=== PATIENT | female | born 1990 | race Caucasian/White ===

== ENCOUNTER 2018-12-12 17:41 | Emergency (ER) | payer OTHER ==
[2018-12-12 18:00] VITALS: BP 127/91
--- NOTE | 2018-12-12 19:08 | UC ---
Complaint Female HPI - HPI Summary HPI Summary: 28 year old female with PMH + for seizure disorder presents with vaginal itching , no discharge, rectal pain with bleeding after hard, large stools x 1 week, recently new medication which caused increased urination, thirst, stopped med ~ 1 week ago, thirst/ urination improved. - History Of Current Complaint Chief Complaint: UCGU Stated Complaint: PERSONAL ISSUE Time Seen by Provider: 12/12/18 18:23 Hx Obtained From: Patient Hx Last Menstrual Period: 3 wks ago ?: No - not sexually active Onset/Duration: Sudden Onset, Lasting Weeks Timing: Constant Severity Initially: Moderate Severity Currently: Moderate Pain Intensity: 4 Pain Scale Used: 0-10 Numeric Character: Burning Aggravating Factor(s): Movement, Urination Associated Signs And Symptoms: Positive: Negative, Vaginal Discharge - Allergies/Home Medications Allergies/Adverse Reactions: Allergies Allergy/AdvReac Type Severity Reaction Status Date / Time Antihistamines - Alkylamine Allergy See Comment Verified 12/12/18 18:01 Antihistamines - Ethanolamine Allergy See Comment Verified 12/12/18 18:01 Antihistamines - Allergy See Comment Verified 12/12/18 18:01 Ethylenediamine Antihistamines - Piperazine Allergy See Comment Verified 12/12/18 18:01 Antihistamines - Piperidine Allergy See Comment Verified 12/12/18 18:01 Home Medications: Home Medications lamoTRIgine [Lamictal] 1 tab PO DAILY 12/12/18 [History Confirmed 12/12/18] lamoTRIgine [Lamotrigine] 1 tab PO DAILY 12/12/18 [History Confirmed 12/12/18] PMH/Surg Hx/FS Hx/Imm Hx Previously Healthy: Yes - seizure disorder - Surgical History Surgical History: Yes Surgery Procedure, Year, and Place: Cysts - Social History Alcohol Use: None Substance Use Type: None Smoking Status (MU): Never Smoked Tobacco Review of Systems All Other Systems Reviewed And Are Negative: Yes Constitutional: Positive: Negative Genitourinary: Positive: Vaginal/Penile Burning, Vaginal/Penile Itching, Vaginal /Penile Discharge, Vaginal/Penile Pain, Vaginal/Penile Tenderness Is Patient Immunocompromised?: No Physical Exam Triage Information Reviewed: Yes Appearance: Well-Appearing, No Pain Distress, Well-Nourished Vital Signs: Initial Vital Signs Temp 98.2 F 12/12/18 17:54 Pulse 74 12/12/18 17:54 Resp 18 12/12/18 17:54 BP 127/91 12/12/18 17:54 Pulse Ox 99 12/12/18 17:54 Vital Signs Reviewed: Yes Eyes: Positive: Conjunctiva Clear ENT: Positive: Hearing grossly normal Abdomen Description: Positive: Nontender, No Organomegaly, Soft. Negative: Bruit, Distended, Guarding Pelvic Exam: Positive: External Exam Normal, Bimanual Exam Normal, No Cerv. Motion Tender, Discharge - milky milk /yellow, mild odor, Other - tender, red external vagina region. mild fissure at retum noted at 6 oclock, no active bleeding, no masses/ fluid/ fluctuations. mild ttp. Negative: Active Bleeding , Blood, Cervicitis, Tender w/ Cervical Motion, Tender Adnexa, Tender Uterus Neurological Exam: Normal Psychological Exam: Normal Psychological: Positive: Other: - anxious Skin Exam: Normal Complaint Female Dx - Course Course Of Treatment: - Vaginal examination + for BV, antibiotics given, patient would like to wait for results prior to starting treatment. Medication called in. - Hydrocortisone over the counter treatment to anal area, external vaginal region ONLY to help with discomfort 2-3 times daily. - Await final results- should return in 48 hours - If symptoms worsen, or abdominal pain, fever, chills, decreased urination, lightheadedness, go to ER or return for further evaluation - Differential Dx/Diagnosis Differential Diagnosis/HQI/PQRI: Cervicitis, Endometriosis, Sexually Transmitted Disease, Urinary Tract Infection Provider Diagnosis: Anal fissure, Bacterial vaginosis Discharge - Sign-Out/Discharge Documenting (check all that apply): Patient Departure All imaging exams completed and their final reports reviewed: No Studies - Discharge Plan Condition: Good Disposition: HOME Prescriptions: metroNIDAZOLE [Flagyl 500 MG TAB] 500 mg PO BID #14 tablet Patient Education Materials: Bacterial Vaginosis (ED), Anal Fissure (ED) Referrals: No Primary Care Phys,NOPCP [Primary Care Provider] - Additional Instructions: Vaginal examination + for BV, antibiotics given, patient would like to wait for results prior to starting treatment. Medication called in. - Hydrocortisone over the counter treatment to anal area, external vaginal region ONLY to help with discomfort 2-3 times daily- small amount, apply like lotion- thin layer- to clean, dry area. DO not use for more than 3 days. - Await final results- should return in 48 hours - If symptoms worsen, or abdominal pain, fever, chills, decreased urination, lightheadedness, go to ER or return for further evaluation - Over the counter witch Zee to help with anal fissure- use after bowel motions or as needed for symptoms. - Billing Disposition and Condition Condition: GOOD Disposition: Home
== END 2018-12-12 19:20 | disposition home or self-care (01) ==
LOC: UCEAST 17:41
DX: N76.0 Acute vaginitis (principal); K60.2 Anal fissure, unspecified; F41.9 Anxiety disorder, unspecified; G40.909 Epilepsy, unspecified, not intractable, without status epilepticus
CPT/HCPCS: 87480; 87510; 99202; G0463

== ENCOUNTER 2019-02-17 15:31 | Emergency (ER) | payer OTHER ==
[2019-02-17 15:45] VITALS: BP 120/82
--- NOTE | 2019-02-17 16:11 | UC ---
UC General HPI - HPI Summary HPI Summary: 28 yo female presents with loose stools for 1 week. She tells me that she has a history of strep throat that presents atypically. When she gets strep she tends to have loose stools and a decreased appetite. She has been around others recently diagnosed with strep throat and this week has had loose stools - thus making her concerned that she has strep. She has no sore throat. She has 2-3 BMs a day, which is normal for her, but states they are looser than normal. She is eating and drinking, but does have a slight decreased appetite compared to her baseline. Nothing OTC for her symptoms. Denies fever, chills, sore throat, sinus symptoms, abdominal pain, vomiting, dysuria, blood in stool, or change in diet. - History of Current Complaint Chief Complaint: UCGeneralIllness Stated Complaint: GENERAL ILLNESS Time Seen by Provider: 02/17/19 16:11 Hx Obtained From: Patient Hx Last Menstrual Period: 02/02/19 Onset/Duration: Sudden Onset Current Severity: None Pain Intensity: 0 - Allergy/Home Medications Allergies/Adverse Reactions: Allergies Allergy/AdvReac Type Severity Reaction Status Date / Time acetaminophen [From Tylenol] Allergy Unknown Verified 02/17/19 15:46 Reaction Details Antihistamines - Alkylamine Allergy See Comment Verified 02/17/19 15:46 Antihistamines - Ethanolamine Allergy See Comment Verified 02/17/19 15:46 Antihistamines - Allergy See Comment Verified 02/17/19 15:46 Ethylenediamine Antihistamines - Piperazine Allergy See Comment Verified 02/17/19 15:46 Antihistamines - Piperidine Allergy See Comment Verified 02/17/19 15:46 levofloxacin [From Levaquin] Allergy Unknown Verified 02/17/19 15:46 Reaction Details Home Medications: Home Medications Divalproex Sodium [Depakote Sprinkle] 62.5 mg PO DAILY WITH MEAL 02/17/19 [ History Confirmed 02/17/19] lamoTRIgine TAB(*) [LaMICtal TAB(*)] 200 mg PO BID 02/17/19 [History Confirmed 02/17/19] PMH/Surg Hx/FS Hx/Imm Hx Psychological History: Anxiety, Bipolar Disorder - Surgical History Surgical History: Yes Surgery Procedure, Year, and Place: Cysts - Family History Known Family History: Positive: Non-Contributory - Social History Alcohol Use: Rare Substance Use Type: None Smoking Status (MU): Former Smoker Review of Systems All Other Systems Reviewed And Are Negative: No Constitutional: Positive: Negative Skin: Positive: Negative Eyes: Positive: Negative ENT: Positive: Negative Respiratory: Positive: Negative Cardiovascular: Positive: Negative Gastrointestinal: Positive: Diarrhea Genitourinary: Positive: Negative Neurovascular: Positive: Negative Neurological: Positive: Negative Psychological: Positive: Negative Physical Exam - Summary Physical Exam Summary: GENERAL: NAD. WDWN. No pain distress. SKIN: No rashes, sores, lesions, or open wounds. HEENT: Head: AT/NC Eyes: EOM intact. Conjunctiva clear without inflammation or discharge. Ears: Hearing grossly normal. TMs intact, no bulging, erythema, or edema. Nose: Nasal mucosa pink and moist. NTTP maxillary and frontal sinus. Throat: Posterior oropharynx without exudates, erythema, or tonsillar enlargement. Uvula midline. NECK: Supple. Nontender. No lymphadenopathy. CHEST: CTAB. No r/r/w. No accessory muscle use. Breathing comfortably and in no distress. CV: RRR. Without m/r/g. Pulses intact. Cap refill <2seconds ABDOMEN: Soft. NTTP. No distention or guarding. No CVA tenderness. Bowel sounds present NEURO: Alert. PSYCH: Age appropriate behavior. Triage Information Reviewed: Yes Vital Signs: Initial Vital Signs Temp 97.9 F 02/17/19 15:41 Pulse 87 02/17/19 15:41 Resp 18 02/17/19 15:41 BP 120/82 02/17/19 15:41 Pulse Ox 98 02/17/19 15:41 Vital Signs Reviewed: Yes Course/Dx - Course Course Of Treatment: POC strep negative. Suspect viral illness. Pt was unable to produce an adequate stool sample in the clinic today, thus will be sent home with a stool kit to perform and return - will treat as needed. Advised to try 24hours of BRAT diet and advance diet as tolerated - Diagnoses Provider Diagnosis: Loose stools Discharge ED - Sign-Out/Discharge Documenting (check all that apply): Patient Departure All imaging exams completed and their final reports reviewed: No Studies - Discharge Plan Condition: Stable Disposition: HOME Patient Education Materials: Acute Diarrhea (ED) Referrals: No Primary Care Phys,NOPCP [Primary Care Provider] - Additional Instructions: If you develop a fever, shortness of breath, chest pain, new or worsening symptoms - please call your PCP or go to the ED immediately. Your stool sample will be sent for testing and we should have all the results in 2-3 days and will treat you as needed - Billing Disposition and Condition Condition: STABLE Disposition: Home
== END 2019-02-17 17:15 | disposition home or self-care (01) ==
LOC: UCEAST 15:31
DX: R19.7 Diarrhea, unspecified (principal); F31.9 Bipolar disorder, unspecified; Z88.6 Allergy status to analgesic agent; Z88.1 Allergy status to other antibiotic agents; Z88.8 Allergy status to other drugs, medicaments and biological substances; Z87.891 Personal history of nicotine dependence
CPT/HCPCS: 87651; 99211; G0463

== ENCOUNTER 2019-04-13 07:12 | Emergency (ER) | payer OTHER ==
[2019-04-13 07:25] VITALS: BP 136/86
--- NOTE | 2019-04-13 07:52 | UC ---
Throat Pain/Nasal Migue HPI - HPI Summary HPI Summary: The patient is a 28-year-old female with a seizure disorder that presents here with a two-week history of profound fatigue. She has had waxing and waning sore throat. She denies any fever or chills. She denies any chest pain or shortness of breath. She has had no headache or myalgias. She denies any acid reflux. She has been able to eat and drink normally. - History of Current Complaint Chief Complaint: UCRespiratory Stated Complaint: SORE THROAT Time Seen by Provider: 04/13/19 07:21 Hx Obtained From: Patient Hx Last Menstrual Period: two weeks ago Onset/Duration: Gradual Onset, Lasting Weeks Severity: Mild Pain Intensity: 3 Pain Scale Used: 0-10 Numeric Cough: None Associated Signs & Symptoms: Positive: Other - fatigue. Negative: Dysphagia, FB Sensation, Drooling, Wheezing, Hoarseness, Sinus Discomfort, Nasal Discharge , Fever, Vomiting, Rash - Epiglottits Risk Factors Epiglottis Risk Factors: Negative - Allergies/Home Medications Allergies/Adverse Reactions: Allergies Allergy/AdvReac Type Severity Reaction Status Date / Time acetaminophen [From Tylenol] Allergy Unknown Verified 04/13/19 07:25 Reaction Details Antihistamines - Alkylamine Allergy See Comment Verified 04/13/19 07:25 Antihistamines - Ethanolamine Allergy See Comment Verified 04/13/19 07:25 Antihistamines - Allergy See Comment Verified 04/13/19 07:25 Ethylenediamine Antihistamines - Piperazine Allergy See Comment Verified 04/13/19 07:25 Antihistamines - Piperidine Allergy See Comment Verified 04/13/19 07:25 levofloxacin [From Levaquin] Allergy Unknown Verified 04/13/19 07:25 Reaction Details Home Medications: Home Medications Ibuprofen 200 mg PO ONCE PRN 04/13/19 [History Confirmed 04/13/19] Pseudoephedrine HCl [Sudafed] 1 tab PO ONCE PRN 04/13/19 [History Confirmed ] PMH/Surg Hx/FS Hx/Imm Hx Previously Healthy: Yes Neurological History: Seizures - Surgical History Surgical History: Yes Surgery Procedure, Year, and Place: Cysts. oral surgery with implants. bilateral hernia repair. - Family History Known Family History: Positive: Non-Contributory Negative: Cardiac Disease, Hypertension, Diabetes - Social History Alcohol Use: Rare Substance Use Type: None Smoking Status (MU): Former Smoker Review of Systems All Other Systems Reviewed And Are Negative: Yes Constitutional: Positive: Fatigue Eyes: Positive: Negative ENT: Positive: Sore Throat Respiratory: Positive: Negative Cardiovascular: Positive: Negative Gastrointestinal: Positive: Negative Genitourinary: Positive: Negative Motor: Positive: Negative Neurovascular: Positive: Negative Musculoskeletal: Positive: Negative Neurological: Positive: Negative Psychological: Positive: Negative Physical Exam Triage Information Reviewed: Yes Appearance: Well-Appearing, No Pain Distress, Well-Nourished Vital Signs: Initial Vital Signs Temp 97.2 F 04/13/19 07:19 Pulse 116 04/13/19 07:19 Resp 18 04/13/19 07:19 BP 136/86 04/13/19 07:19 Pulse Ox 96 04/13/19 07:19 Vital Signs Reviewed: Yes Eyes: Positive: Conjunctiva Clear ENT: Positive: Hearing grossly normal, Pharyngeal erythema, Uvula midline. Negative: Nasal congestion, Nasal drainage, Tonsillar swelling, Tonsillar exudate, Trismus, Muffled voice, Hoarse voice Dental Exam: Normal Neck: Positive: Supple, Nontender, No Lymphadenopathy Respiratory: Positive: Lungs clear, Normal breath sounds, No respiratory distress Cardiovascular: Positive: RRR, No Murmur Abdomen Description: Positive: Nontender, No Organomegaly, Soft Bowel Sounds: Positive: Present Musculoskeletal: Positive: ROM Intact, No Edema Neurological: Positive: Alert Psychological Exam: Normal Skin Exam: Other - flakey/dry Throat Pain/Nasal Course/Dx - Differential Dx/Diagnosis Provider Diagnosis: Sore throat, Fatigue, Elevated BP without diagnosis of hypertension Discharge ED - Sign-Out/Discharge Documenting (check all that apply): Patient Departure All imaging exams completed and their final reports reviewed: No Studies - Discharge Plan Condition: Stable Disposition: HOME Patient Education Materials: Fatigue (ED), Pharyngitis (ED) Referrals: [facility] [place] [facility] [Outside] (BP here prehypertensive needs follow up in 2- 12 weeks) Additional Instructions: recheck BP in 2-12 weeks return for new or worsening symptoms - Billing Disposition and Condition Condition: STABLE Disposition: Home
[2019-04-13 11:24] LABS: ABS Eosinophils 0.1 10^3/ul (0-0.6); ABS Lymphocytes 1.4 10^3/ul (1.0-4.8); ABS Monocytes 0.4 10^3/ul (0-0.8); ABS Neutrophils 4.5 10^3/ul (1.5-7.7); Eosinophil % 0.8 %; Hematocrit 45 % (35-47); Hemoglobin 15.7 g/dL (12.0-16.0); Lymphocyte % 22.4 %; Mean Corpuscular HGB Conc 35 g/dL (31-36); Mean Corpuscular Hemoglobin 30 pg (27-31); Mean Corpuscular Volume 86 fL (80-97); Mean Platelet Volume 8.5 fL (7.4-10.4); Nucleated Red Blood Cells % 0.1; Platelet Count 331 10^3/uL (150-450); Red Blood Count 5.17 10^6 /uL (3.70-4.87); Red Cell Distribution Width 13 % (10-15); White Blood Count 6.5 10^3/uL (3.5-10.8)
[2019-04-13 11:54] LABS: TSH (Thyroid Stimulating Horm) 1.84 mcIU/mL (0.34-5.60)
--- NOTE | 2019-04-14 08:35 | UC ---
- Progress Note Progress Note: notify patient low valproic acid level she should have lab work sent to her neurologist 13 (50-100 therapeutic) Course/Dx - Diagnoses Provider Diagnoses: Sore throat, Fatigue, Elevated BP without diagnosis of hypertension Discharge ED - Sign-Out/Discharge Documenting (check all that apply): Post-Discharge Follow Up All imaging exams completed and their final reports reviewed: No Studies - Discharge Plan Condition: Stable Disposition: HOME Patient Education Materials: Pharyngitis (ED), Fatigue (ED) Referrals: [facility] [place] [facility] [Outside] (BP here prehypertensive needs follow up in 2- 12 weeks) Additional Instructions: recheck BP in 2-12 weeks return for new or worsening symptoms - Billing Disposition and Condition Condition: STABLE Disposition: Home
--- NOTE | 2019-04-14 20:03 | UC ---
- Progress Note Progress Note: Pt has bee notified about low Valproic Acid level and has Neuro on board. Reviewed today's lab of Lamotrigine which is WNL-no change to plan Course/Dx - Diagnoses Provider Diagnoses: Sore throat, Fatigue, Elevated BP without diagnosis of hypertension Discharge ED - Sign-Out/Discharge Documenting (check all that apply): Post-Discharge Follow Up All imaging exams completed and their final reports reviewed: No Studies - Discharge Plan Condition: Stable Disposition: HOME Patient Education Materials: Pharyngitis (ED), Fatigue (ED) Referrals: [facility] [place] [facility]ERR[facility] [Outside] (BP here prehypertensive needs follow up in 2- 12 weeks) Additional Instructions: recheck BP in 2-12 weeks return for new or worsening symptoms - Billing Disposition and Condition Condition: STABLE Disposition: Home
== END 2019-04-13 08:10 | disposition home or self-care (01) ==
LOC: UCEAST 07:12
DX: J02.9 Acute pharyngitis, unspecified (principal); R53.83 Other fatigue; R03.0 Elevated blood-pressure reading, without diagnosis of hypertension; Z87.891 Personal history of nicotine dependence; Z88.1 Allergy status to other antibiotic agents; Z88.6 Allergy status to analgesic agent; Z88.8 Allergy status to other drugs, medicaments and biological substances
CPT/HCPCS: 36415; 80164; 80175; 82306; 84443; 85025; 86308; 87651; 99211; G0463